=== PATIENT | male | born 1990 | race African-American/Black ===

== ENCOUNTER 2017-03-17 12:34 | Emergency (ER) | payer SELFPAY ==
[~2017-03-17] VITALS: Ht 121.9 cm; Wt 62.1 kg
[2017-03-17 12:46] VITALS: BP 117/75
--- NOTE | 2017-03-17 13:18 | PHYS DOC ---
Past Medical History Past Medical History: Other Additional Past Medical Histor: chronic back pain Past Surgical History: No Surgical History Alcohol Use: None Drug Use: None Adult General Chief Complaint Chief Complaint: BACK PAIN - NO INJURY [facility] HPI Patient is a 26 year old male resents emergency department stating that his back pain and discomfort. Also states that he has had some cough and congestion which she has some chest discomfort with coughing. He states that he has taken a few ibuprofen [id number] with no relief. He denies any fever however he does state he's had some chills. He states he has had difficulty with sleeping at night. Patient denies any injury or trauma to his back. He does state that he 's had some chronic back issues. Review of Systems Review of Systems Constitutional: Denies fever or chills [] Eyes: Denies change in visual acuity, redness, or eye pain [] HENT: Denies nasal congestion or sore throat [] Respiratory: cough denies shortness of breath [] Cardiovascular: No additional information not addressed in HPI [] GI: Denies abdominal pain, nausea, vomiting, bloody stools or diarrhea [] : Denies dysuria or hematuria [] Musculoskeletal: lower back pain denies joint pain [] Integument: Denies rash or skin lesions [] Neurologic: Denies headache, focal weakness or sensory changes [] Endocrine: Denies polyuria or polydipsia [] Allergies Allergies Allergies Coded Allergies Type Severity Reaction Last Updated Verified No Known Drug Allergies 03/17/17 No Physical Exam Physical Exam Constitutional: Well developed, well nourished, no acute distress, non-toxic appearance. [] HENT: Normocephalic, atraumatic, bilateral external ears normal, oropharynx moist, no oral exudates, nose normal. [] Eyes: PERRLA, EOMI, conjunctiva normal, no discharge. [] Neck: Normal range of motion, no tenderness, supple, no stridor. [] Cardiovascular:Heart rate regular rhythm, no murmur [] Lungs & Thorax: Bilateral breath sounds clear to auscultation [] Abdomen: Bowel sounds normal, soft, no tenderness, no masses, no pulsatile masses. [] Skin: Warm, dry, no erythema, no rash. [] Back: right mid back tenderness Extremities: No tenderness, no cyanosis, no clubbing, ROM intact, no edema. Patient was able to do straight leg raises without difficulty. Neurologic: Alert and oriented X 3, normal motor function, normal sensory function, no focal deficits noted. [] Psychologic: Affect normal, judgement normal, mood normal. [] Current Patient Data Vital Signs Vital Signs Date Time Temp Pulse Resp B/P (MAP) Pulse Ox O2 Delivery O2 Flow Rate FiO2 03/17/17 12:46 99.0 100 20 97 Room Air 99.0 EKG EKG [] Radiology/Procedures Radiology/Procedures [] Course & Med Decision Making Course & Med Decision Making Pertinent Labs and Imaging studies reviewed. (See chart for details) Recommended for patient to take Mucinex DM [id number] to help with cough and congestion as this is only been going on for the last 3 days. Also recommended Tylenol and ibuprofen for pain and discomfort. Recommended 800 mg of ibuprofen every 8 hours. Recommended following up with primary care physician in the next week. Signs symptoms to return back to emergency department as been provided. [] Dragon Disclaimer Dragon Disclaimer This electronic medical record was generated, in whole or in part, using a voice recognition dictation system. Departure Departure Impression: Primary Impression: URI (upper respiratory infection) Additional Impression: Back pain, chronic Disposition: 01 HOME, SELF-CARE Condition: STABLE Patient Instructions: Chronic Back Pain, Upper Respiratory Infection, Adult, [id number] Additional Instructions: Activity as tolerated. Mucinex DM may be taken as instructed by documentation designer [id number]. Tylenol or ibuprofen for pain and discomfort. You may take 800 mg of ibuprofen every 8 hours with food if he developed upset stomach stopped taking the medication. Ice packs to the areas of discomfort on your back area. Warm moist packs to the chest wall area. Follow-up primary care physician in the next week. Return back to emergency prior signs symptoms become worse. Problem Qualifiers TIARA ANN [employer] March 17, 2017 13:18
== END 2017-03-17 13:30 | disposition home or self-care (01) ==
LOC: ER 13:22
DX: J06.9 Acute upper respiratory infection, unspecified (principal); G89.29 Other chronic pain; M54.5 Low back pain
CPT/HCPCS: 99281